=== PATIENT | male | born 1940 | race Caucasian/White ===

== ENCOUNTER 2016-11-15 11:35 | Emergency (ER) | payer MEDICARE, OTHER ==
[~2016-11-15] VITALS: Ht 185.4 cm; Wt 99.3 kg
[2016-11-15 11:50] VITALS: BP 156/85
[2016-11-15] MEDS ORDERED: ALFU10TA3 PO (12:26)
[2016-11-15] MEDS ORDERED: FINA5TAB4 PO (12:26)
[2016-11-15] MEDS ORDERED: IV NORMAL SALINE 1000ML BAG 1,000 ML IV ONE (12:30)
[2016-11-15] MEDS ORDERED: RIVAROXABAN 15 MG TABLET. PO STA (12:31)
[2016-11-15] MEDS ORDERED: RIVA15TA PO (12:43)
--- NOTE | 2016-11-15 12:43 | PHYS DOC ---
Past Medical History Past Medical History: Other Additional Past Medical Histor: BPH Past Surgical History: Other Additional Past Surgical Histo: Thyroid ductal cyst removed-40 yrs ago. Alcohol Use: Occasionally Drug Use: None Adult General Chief Complaint Chief Complaint: LOWER EXT PAIN HPI HPI Patient is a 76 year old male presenting to the emergency department for evaluation of diffuse right leg swelling that started 1 week ago and has persisted. He had an outpatient ultrasound that showed superficial femoral vein complete thrombosis in addition to popliteal vein thrombosis. He denies any recent travel immobility surgeries or prior DVT or PE. He denies any cancer or hypercoagulable disorder that he knows of. Patient only takes 2 medications for his prostate and denies taking any anticoagulants or any other medications including [id number] supplements. He denies any cough shortness of breath hemoptysis or chest pain. He is in no obvious distress with normal vital signs. Review of Systems Review of Systems Constitutional: Denies fever or chills [] Respiratory: Denies cough or shortness of breath [] Cardiovascular: No additional information not addressed in HPI [] GI: Denies abdominal pain, nausea, vomiting, bloody stools or diarrhea [] Musculoskeletal: Denies back pain or joint pain [] Current Medications Current Medications Current Medications Medications (Trade) Dose Ordered Sig/[facility] Start Time Stop Time Status Last Admin Dose Admin Rivaroxaban (Xarelto) 15 mg ONCE STAT 11/15/16 12:31 11/15/16 12:34 DC Sodium Chloride 1,000 ml @ 1,000 mls/hr 1X ONCE 11/15/16 12:30 11/15/16 12:31 DC Allergies Allergies Allergies Coded Allergies Type Severity Reaction Last Updated Verified bee venom protein (honey bee) Allergy Severe Anaphylaxis 11/15/16 Yes epinephrine Adverse Reaction Mild Shaking. 11/15/16 Yes Uncoded Allergies Type Severity Reaction Last Updated Verified wasp Allergy Severe Anaphylaxis 11/15/16 Physical Exam Physical Exam Constitutional: Well developed, well nourished, no acute distress, non-toxic appearance. [] Cardiovascular:Heart rate regular rhythm, no murmur [] Lungs & Thorax: Bilateral breath sounds clear to auscultation [] Abdomen: Bowel sounds normal, soft, no tenderness, no masses, no pulsatile masses. [] Skin: Warm, dry, no erythema, no rash. [] Back: No tenderness, no CVA tenderness. [] Extremities: Right lower extremity diffusely swollen with 2+ DP and PT a pulse. Sensation intact as well. There is no abnormal color including no pallor or venous congestion noted. Neurologic: Alert and oriented X 3, normal motor function, normal sensory function, no focal deficits noted. [] Current Patient Data Vital Signs Vital Signs Date Time Temp Pulse Resp B/P (MAP) Pulse Ox O2 Delivery O2 Flow Rate FiO2 11/15/16 11:50 97.8 69 18 156/85 (108) 100 Room Air 97.8 EKG EKG [] Radiology/Procedures Radiology/Procedures [] Course & Med Decision Making Course & Med Decision Making I spoke to the vascular surgeon content assistant Dr. Andrews and he stated that patient does not need any intervention and recommended outpatient Xarelto. He said the patient should follow with him in 1 month after a repeat ultrasound. I recommended follow-up with his primary care provider later this week to check for any possible hypercoagulable state and to come back to the ER sooner with worsening pain swelling shortness of breath chest pain or other general concerns. Patient aware and agreeable with plan and verbalized understanding of the need for short-term follow-up in the strict ER return precautions that were discussed as above. Dragon Disclaimer Dragon Disclaimer This electronic medical record was generated, in whole or in part, using a voice recognition dictation system. Departure Departure Impression: Primary Impression: DVT (deep venous thrombosis) Disposition: 01 HOME, SELF-CARE Condition: GOOD Referrals: CHAD GLEZ MD Patient Instructions: Deep Vein Thrombosis Additional Instructions: FOLLOW WITH YOUR PRIMARY CARE PROVIDER LATER THIS WEEK AND FOLLOW WITH THE VASCULAR SURGEON IN 1 MONTH AFTER YOU GET A REPEAT ULTRASOUND. Scripts Rivaroxaban (XARELTO) 15 Mg Tablet 15 MG PO BID, #41 TAB TAKE FIRST PRESCRIBED DOSE THIS EVENING Prov: NICOLA HERRERA DO 11/15/16 Problem Qualifiers Primary Impression: DVT (deep venous thrombosis) DVT location: lower extremity Affected thrombotic vein of extremity: unspecified vein of extremity Chronicity: acute Laterality: right Qualified Codes: I82.401 - Acute embolism and thrombosis of unspecified deep veins of right lower extremity NICOLA HERRERA DO Nov 15, 2016 12:43
--- NOTE | 2016-11-15 12:56 | EKG ---
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
== END 2016-11-15 13:06 | disposition home or self-care (01) ==
LOC: ER 11:35
DX: I82.401 Acute embolism and thrombosis of unspecified deep veins of right lower extremity (principal); N40.0 Benign prostatic hyperplasia without lower urinary tract symptoms; Z79.01 Long term (current) use of anticoagulants; Z88.8 Allergy status to other drugs, medicaments and biological substances; Z91.030 Bee allergy status; Z91.038 Other insect allergy status
CPT/HCPCS: 93005; 99285-25